=== PATIENT | female | born 2000 | race Two or more races ===

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

== ENCOUNTER 2018-11-04 17:52 | Emergency (ER) | payer OTHER ==
[2018-11-04 18:55] LABS: ALT (SGPT) 10 U/L (8-55); AST (SGOT) 23 U/L (5-34); Albumin 4.2 g/dL (3.5-5.0); Alkaline Phosphatase 71 U/L (40-150); Anion Gap 14 mmol/L (10-20); BUN (Urea Nitrogen) 9 mg/dL (7.0-18.7); Bilirubin, Total 0.2 mg/dL (0.2-1.2); Calc. Creatinine Clearance 0 mL/min (70-130); Calcium 9.5 mg/dL (7.8-10.44); Carbon Dioxide 22 mmol/L (22-29); Chloride 105 mmol/L (98-107); Estimated GFR-MDRD Greater than 90; Globulin 2.8 g/dL (2.4-3.5); Glucose 87 mg/dL (70-105); Potassium 3.5 mmol/L (3.5-5.1); Sodium 137 mmol/L (136-145)
[2018-11-04 18:56] LABS: #Basophils 0.1 thou/uL (0.0-0.2); #Lymphocytes 1.9 thou/uL (1.20-3.40); #Monocytes 0.3 thou/uL (0.11-0.59); #Neutrophils 2.8 thou/uL (1.40-6.50); %Basophils 1.3 % (0.0-1.0); %Eosinophils 0.9 % (0.0-10.0); %Lymphocytes 37.4 % (28.0-48.0); %Monocytes 4.9 % (0.0-4.0); %Neutrophils 55.5 % (31.0-61.0); Hemoglobin 9.4 g/dL (12.0-16.0); Mean Corpuscular HGB CONC 29.9 g/dL (32.0-36.0); Mean Corpuscular Hemoglobin 22.5 pg (25.0-35.0); Mean Corpuscular Volume 75.4 fL (78.0-98.0); Mean Platelet Volume 9.4 fL (7.4-10.4); Platelet Count 205 thou/uL (130-400); RBC Distribution Width 18.8 % (11.5-14.5); Red Blood Cell (RBC) Count 4.18 mill/uL (4.00-5.20); White Blood Cell (WBC) Count 5.1 thou/uL (4.8-10.8)
[2018-11-04 19:08] LABS: Clarity Turbid (Clear)
[2018-11-04 19:11] LABS: Bacteria/HPF None Seen HPF (None Seen); RBC/HPF Greater than 50 HPF (0-3); Squamous Epithelial 0-3 HPF (0-3); WBC/HPF None Seen HPF (0-3)
[2018-11-04 19:16] LABS: Thyroid Stimulating Hormone 0.8541 uIU/mL (0.35-4.94)
[2018-11-04 19:24] LABS: MDiff Complete? YES; Microcytosis SLIGHT = 6-15 cells (100X) (0-5/hpf); Ovalocytes SLIGHT = 2-5 cells (100X) (0-1/hpf); Platelet Morphology Comment Appears Adequate; Rouleaux Formation SLIGHT = 1-5 cells (100X) (None Seen)
[2018-11-04 19:48] LABS: HCG, Total Quant 42676.89 mIU/mL (See Ranges)
== END 2018-11-04 20:45 | disposition home or self-care (01) ==
LOC: NAV ERS 17:52
DX: O20.0 Threatened abortion (principal)
CPT/HCPCS: 36415; 80053; 81003; 81015; 84443; 84702; 85025; 99284

== ENCOUNTER 2018-11-05 13:00 | Outpatient (CLI) | payer OTHER ==
--- NOTE | 2018-11-05 14:49 | ULT ---
PELVIC ULTRASOUND: 11/05/18 HISTORY: Vaginal spotting for two days with mild cramping. Quantitative beta HCG level is 42,676 as noted one day ago in the Emergency Department. FINDINGS: Multiple endovaginal sonographic images of the pelvis are obtained. There is a fluid collection withi n the endometrial canal which contains both a pole and a yolk sac. Cardiac Doppler does demonst rate heart tones with a heart rate of 130 beats per minute. The crown-rump length measure s 0.5 cm compatible with gestational age by ultrasound of 6 weeks and 1 day. There is an adjacent he terogeneous collection in a subchorionic location which measures 2.6 cm x 1.6 cm x 2.5 cm. Color Dopp ler evaluation of this area does not demonstrate flow, and this is most likely related to a large sub chorionic hemorrhaged. Right ovary demonstrates a normal sonographic appearance with peripheral follicles present. The right ovary measures 3.2 cm x 2.8 cm x 1.8 cm. The left ovary measures 3.2 cm x 3.6 cm x 1.5 cm. There is a hypoechoic cystic structure within the l eft ovary measuring 1.6 cm in greatest dimension which does not demonstrate flow and probably represe nts a small hemorrhagic cyst. There is also an additional 1.4 cm anechoic structure seen in the left ovary likely related to ovarian cyst. Doppler evaluation of the right ovary with spectral analysis and color flow evaluation does demonstra te arterial flow. Doppler evaluation of the left ovary was not provided on provided images although p rior Doppler evaluation of the region of the left ovary suggests flow within the left ovary; however, arterial waveform was not performed. No free fluid is seen in the cul-de-sac. IMPRESSION: 1. Evidence of a large subchorionic hemorrhage measuring 2.6 cm in greatest dimension. Continue d close follow up is recommended. 2. Intrauterine gestation with heart tones documented. Gestational age by measurement of t he crown-rump length is 6 weeks and 1 day. 3. Left ovarian cyst with additional hypoechoic cystic lesion in the left ovary which probably r epresents a hemorrhagic cyst. However, follow-up evaluation is recommended. 4. Above findings discussed with Dr. Queen on 11/05/18 at 1418 hours. POS: [facility]
== END 2018-11-05 13:01 | disposition home or self-care (01) ==
LOC: NAV ULT 13:00
PROVIDERS: ATTEND Emergency Medicine
DX: O20.0 Threatened abortion (principal); N83.202 Unspecified ovarian cyst, left side
CPT/HCPCS: 76856